=== PATIENT | male | born 1970 | race Two or more races ===

== ENCOUNTER 2017-11-24 13:15 | Emergency (ER) | payer SELFPAY ==
[2017-11-24 13:33] LABS: BASOPHIL (%) 0.4 % (0-1); EOSINOPHIL (%) 4.7 % (0-5); EOSINOPHIL COUNT 0.5 K/uL (0-0.3); IMMATURE GRANULOCYTE (%) 0.5 % (0.0-0.7); LYMPHOCYTE COUNT 2.6 K/uL (1.0-2.8); MCH 31.5 PG (29.0-34.0); MCHC 34.8 G/DL (30.0-36.0); MCV 90.6 FL (86-99); MONOCYTE (%) 6.8 % (3-12); MONOCYTE COUNT 0.8 K/uL (0-0.8); NEUTROPHIL (%) 63.6 % (45-76); PLATELET COUNT 323 K/uL (156-360); RBC DIS.WIDTH-CV 13.2 % (11.8-14.6); RBC DIS.WIDTH-SD 44.2 % (39-53); RED BLOOD COUNT 5.08 M/uL (4.00-5.50)
[2017-11-24 13:42] LABS: AMYLASE 61 IU/L (1-118); CHLORIDE 105 mEq/L (99-109); POTASSIUM 4.2 mEq/L (3.7-5.4); SODIUM 139 mEq/L (136-147)
[2017-11-24 13:44] LABS: GLUCOSE 99 mg/dL (70-99)
[2017-11-24 13:47] LABS: SERUM ETHYL ALCOHOL < 10 mg/dL
[2017-11-24 13:48] LABS: GFR ESTIMATE (CALCULATED) > 59 mL/min/ (58.99-99999)
[2017-11-24 13:49] LABS: UREA NITROGEN (BUN) 15 mg/dL (9-23)
[2017-11-24 13:51] LABS: LIPASE 17 U/L (1.0-51.0)
[2017-11-24] MEDS ORDERED: IBUPROFEN600 MG PO (16:00)
== END 2017-11-24 19:18 | disposition home or self-care (01) ==
LOC: EME 13:15
PROVIDERS: Emergency Medicine
DX: T14.8XXA Other injury of unspecified body region, initial encounter (principal); M54.2 Cervicalgia; M54.5 Low back pain; M79.605 Pain in left leg; W12.XXXA Fall on and from scaffolding, initial encounter; Y99.0 Civilian activity done for income or pay
CPT/HCPCS: 70450; 71045; 71260; 72125; 72129; 72132; 72170; 73552; 73590; 74177; 80048; 81003; 82150; 83690; 85025; 86850; 86900; 86901; 99281; 99284; G0480